=== PATIENT | male | born 1975 | race Caucasian/White ===

== ENCOUNTER → 2020-12-16 13:44 | Outpatient (CLI) | payer BC, SELFPAY | LOC: EMPH 12-18 08:17 → LABSPEC 01-04 13:44 | PROVIDERS: PCP Family Medicine; Referring Provider Nurse Practitioner Family; Visit Provider Internal Medicine Infectious Disease | DX: U07.1 COVID-19 (principal) | CPT/HCPCS: 87635; U0005; U0003 ==

== ENCOUNTER 2021-05-21 11:34 | Outpatient (CLI) | payer BC, SELFPAY ==
--- NOTE | 2021-05-21 11:40 | RAD_ITS ---
EXAM: XR ABDOMEN, 2 VIEWS CLINICAL INDICATION: URINARY URGENCY TECHNIQUE: Frontal view of the abdomen/pelvis with upright view of the abdomen. This report was created using [employer] report generation technology. COMPARISON: None. FINDINGS: LOWER THORAX: No acute pathology. INTRAPERITONEAL SPACE: No free air. GASTROINTESTINAL TRACT: Unremarkable. Non-obstructive. No bowel or stomach distention. ORGANS: Unremarkable as visualized. No organomegaly. No abnormal calcifications. BONES/JOINTS: No acute pathology. SOFT TISSUES: No acute pathology. RAD/Abd Inc Decub and/or Erect IMPRESSION: Unremarkable abdominal series. Electronically Signed: Toni Patel MD at 20:06 EST , Service support ,
[2021-05-21 15:10] LABS: Hematocrit 45.6 % (40-54); Hemoglobin 15.8 g/dL (13.0-16.5); Mean Corp Hgb Conc 34.6 g/dL (32-36); Mean Corpuscular Hgb 29.9 pg (27.0-32.0); Mean Corpuscular Volume 86.4 fL (80-94); Mean Platelet Vol. 9.2 fl (6.2-12.0); Platelet Count 316 K/mm3 (150-450); RBC Distribution Width CV 12.7 % (11.6-14.6); RBC Distribution Width SD 39.6 fl (35.1-43.9); Red Blood Count 5.28 M/mm3 (4.6-6.2); White Blood Count 12.2 K/mm3 (4.4-11.0)
[2021-05-21 15:25] LABS: Anion Gap 6 (5-15); BUN 15 mg/dL (7-18); Chloride 101 mmol/L (98-107); Creatinine, Serum 1.36 mg/dL (0.70-1.30); EST Glomerular Filtration Rate 60 mL/min (>60); Est Glom Filt Rate - Afr Amer 72 mL/min (>60); Glucose 100 mg/dL (74-106); Potassium 3.7 mmol/L (3.5-5.1); Sodium Level 136 mmol/L (136-145)
== END 2021-05-21 23:59 | disposition short-term general hospital (02) ==
LOC: MTLAB 11:36
PROVIDERS: PCP Family Medicine; Referring Provider Family Medicine; Visit Provider Family Medicine
DX: R39.15 Urgency of urination (principal)
CPT/HCPCS: 36415; 74019; 80048; 85027

== ENCOUNTER 2021-06-19 13:20 | Outpatient (CLI) | payer BC, SELFPAY ==
--- NOTE | 2021-06-19 13:28 | CT_ITS ---
STUDY: CT ABDOMEN AND PELVIS WITHOUT CONTRAST REASON FOR EXAM: Male, 46 years old. Renal stone-LEFT FLANK PAIN RADIATION DOSAGE (If Supplied By Facility): CTDIvol = ( 8.84 ) mGy, DLP = ( 472.48 ) mGycm TECHNIQUE: Transaxial images were obtained from the dome of the diaphragm to the symphysis pubis without oral contrast, and without intravenous contrast. Sagittal and coronal images were reconstructed. Individualized dose optimization techniques were used for this CT. COMPARISON: None. FINDINGS: The visualized lung bases are unremarkable. The visualized portions of the heart are within normal limits. Normal liver. Normal gallbladder and extrahepatic biliary system. Normal spleen. Normal pancreas. Normal bilateral adrenal glands. 2 mm calculus in the midpole calyx of the right kidney. Mild degree of left perinephric stranding. There is a 4 cm x 2.7 cm cyst in the inferior parapelvic region of the left kidney. Mild degree of left hydronephrosis due to a 6.8 mm calculus at the left ureterovesical junction. Normal visualized stomach. Normal small intestine. Normal colon. The appendix is visualized and appears normal. Normal abdominal aorta. Normal inferior vena cava. Normal retroperitoneum. Normal urinary bladder. There is a small umbilical hernia containing fat. Small bilateral inguinal hernias containing fat. Normal osseous structures. CT/Abdomen/Pelvis without Cont IMPRESSION: 6.8 mm calculus at the left ureterovesical junction causing mild degree of left hydronephrosis. Left parapelvic cyst. Nonobstructive calculus in the midpole calyx of the right kidney. Electronically Signed: Charles Kunz MD at 14:32 EST ,
== END 2021-06-19 23:59 | disposition home or self-care (01) ==
PROVIDERS: PCP Family Medicine; Referring Provider Family Medicine; Visit Provider Family Medicine
DX: R31.9 Hematuria, unspecified (principal); R39.15 Urgency of urination
CPT/HCPCS: 74176

== ENCOUNTER 2021-06-27 07:08 | Outpatient (CLI) | payer BC, SELFPAY | END 2021-06-27 23:59 | disposition home or self-care (01) | LOC: PSN 07:10 | PROVIDERS: PCP Family Medicine; Referring Provider Urology; Visit Provider Urology | DX: Z03.818 Encounter for observation for suspected exposure to other biological agents ruled out (principal) | CPT/HCPCS: 87635; C9803; U0003; U0005 ==